=== PATIENT | female | born 1945 | race Two or more races ===

== ENCOUNTER 2018-05-01 20:34 | Inpatient (IN) | payer MEDICARE, BC ==
[~2018-05-01] VITALS: Ht 162.6 cm; Wt 59.9 kg
[2018-05-01 22:00] VITALS: BP 154/87
--- NOTE | 2018-05-01 22:00 | NUR ---
GPS-SUPERVISOR GROVE NOTES: ADMITTED A 72 YR-OLD FEMALE FROM [facility]. ADMITTED ON 5150 FOR DTS/DTO. PER HOLD, PATIENT HAD TAKEN AN UNKNOWN QUANTITY OF PILLS AND LOCKED HERSELF IN HER ROOM AFTER AN ATTEMPT TO KILL HERSELF. PATIENT STATED SHE DID NOT WANT TO LIVE ANYMORE AND WANTED TO BY GOING TO SLEEP AFTER TAKING PILLS. UPON FACE TO FACE ASSESSMENT, PT. IS ALERT, ORIENTED X3, DEPRESSED, COOPERATIVE WITH CARE, IN NO APPARENT DISTRESS NOTED. NO C/O OF PAIN OR DISCOMFORT. DENIES SI/HI OR HALLUCINATIONS AT THIS TIME. BELONGINGS WERE INVENTORIED AND CHECKED FOR CONTRABAND. PT. IS UNDER THE PSYCHIATRIC CARE OF DR. WELSH ORDERS OBTAINED, AND UNDER THE MEDICAL CARE OF KELLI, PAGED EPIC AND SPOKE TO JUDSON MCNAIR NOTIFIED OF ADMISSION, MED RECON DONE. SKIN ASSESSMENT DONE. SKIN INTACT. BED LOCKED AND PLACED ON LOWEST POSITION TO MAINTAIN SAFETY. FALL PRECAUTIONS IMPLEMENTED. WILL CONTINUE TO MONITOR Q15 MINS. FOR SAFETY AND BEHAVIOR.
[2018-05-01] MEDS ORDERED: MAG HYDROX/AL HYDROX/SIMETH 30 ML UDC PO PRN (22:30)
[2018-05-01] MEDS ORDERED: MAGNESIUM HYDROXIDE 30 ML UDC PO PRN (22:30)
[2018-05-01] MEDS ORDERED: ACETAMINOPHEN 325 MG TABLET PO PRN (22:30)
[2018-05-01 22:34] VITALS: BP 154/87
[2018-05-01] MEDS ORDERED: LISI-607 PO (23:28)
[2018-05-01] MEDS ORDERED: GABA600T12 PO (23:28)
[2018-05-01] MEDS ORDERED: OLAN10TA3 PO (23:28)
[2018-05-01] MEDS ORDERED: PRAV20TA4 PO (23:28)
[2018-05-01] MEDS ORDERED: DONE5TAB34 PO (23:28)
[2018-05-01] MEDS ORDERED: LEVO75TA7 PO (23:28)
[2018-05-01] MEDS ORDERED: NYST15PO4 TP (23:28)
[2018-05-01] MEDS ORDERED: ESZO3TAB27 PO (23:28)
[2018-05-02 07:39] LABS: BASOPHILS % (AUTO) 0.7 % (0.0-2.0); EOSINOPHILS % (AUTO) 1.4 % (0.0-6.0); HEMATOCRIT 39 % (33-45); HEMOGLOBIN 13.1 g/dL (11.5-14.8); LYMPHOCYTES # (AUTO) 1.9 /CMM (0.8-4.8); LYMPHOCYTES % (AUTO) 27.2 % (20.0-44.0); MEAN CORPUSCULAR HGB CONC 34 g/dl (31.0-36.0); MEAN CORPUSCULAR VOLUME 88 fL (82-100); MONOCYTES # (AUTO) 0.7 /CMM (0.1-1.30); MONOCYTES % (AUTO) 9.5 % (2.0-12.0); NEUTROPHILS # (AUTO) 4.3 /CMM (1.8-8.9); NEUTROPHILS % (AUTO) 61.2 % (43.0-81.0); PLATELET COUNT (AUTO) 169 /CMM (150-450); RED BLOOD CELL COUNT(AUTO) 4.44 MIL/uL (4.0-5.2)
[2018-05-02 07:53] LABS: ALANINE AMINOTRANSFERASE 14 U/L (12-78); ALBUMIN 3.4 g/dL (3.4-5.0); ALKALINE PHOSPHATASE 115 U/L (46-116); ASPARTATE AMINOTRANSFERASE 23 U/L (15-37); BILIRUBIN,TOTAL 0.7 mg/dL (0.2-1.0); CALCIUM, SERUM 8.7 mg/dL (8.5-10.1); CARBON DIOXIDE 25 mmol/L (21-32); CHLORIDE 106 mmol/L (98-107); CREATININE 1.3 mg/dL (0.6-1.3); GLUCOSE 105 mg/dL (74-106); MAGNESIUM 1.6 mg/dL (1.8-2.4); PHOSPHORUS 3.8 mg/dL (2.5-4.9); POTASSIUM 3.5 mmol/L (3.5-5.1); SODIUM SERUM 144 mmol/L (136-145); UREA NITROGEN, BLOOD 13 mg/dL (7-18)
[2018-05-02 07:55] LABS: CHOLESTEROL 158 mg/dL (<200); HDL CHOLESTEROL 85 mg/dL (40-60); LDL 69 mg/dL (0-99); TRIGLYCERIDES 71 mg/dL (30-150)
[2018-05-02 08:00] VITALS: BP 144/85
[2018-05-02 08:07] LABS: THYROID STIMULATING HORMONE 0.048 uIU/mL (0.358-3.74)
[2018-05-02] MEDS: LEVOTHYROXINE SODIUM 75 MCG TABLET PO SCH (08:29)
[2018-05-02] MEDS: DONEPEZIL 5 MG TABLET PO SCH (08:30)
[2018-05-02] MEDS: GABAPENTIN 300 MG CAPSULE PO SCH ×3 (08:30→16:24)
[2018-05-02] MEDS ORDERED: LISINOPRIL (5MG) 5 MG TABLET PO SCH (09:00)
[2018-05-02] MEDS ORDERED: PRAVASTATIN SODIUM 20 MG TABLET PO SCH (09:00)
[2018-05-02] MEDS: NYSTATIN TOP POWDER 15 GM BOTTLE TP SCH ×2 (09:31→16:24)
[2018-05-02] MEDS ORDERED: MAGNESIUM OXIDE 400 MG TABLET PO ONE (11:30)
[2018-05-02] MEDS ORDERED: LISINOPRIL (10MG) 10 MG TABLET PO ONE (14:00)
[2018-05-02] MEDS ORDERED: hydrALAZINE HCL 25 MG TABLET PO PRN (14:00)
--- NOTE | 2018-05-02 15:23 | NUR ---
SW contacted pts [phone] for collateral information and discharge planning. Per pt will return home once stable for discharge.
[2018-05-02 16:00] VITALS: BP 161/95
[2018-05-02 19:43] VITALS: BP 151/88
[2018-05-02] MEDS: ATORVASTATIN 10 MG TABLET PO SCH (21:21)
[2018-05-03] MEDS: LEVOTHYROXINE SODIUM 75 MCG TABLET PO SCH (07:04)
[2018-05-03 08:00] VITALS: BP 157/92
[2018-05-03] MEDS ORDERED: Z GUARD REMEDY 2 OZ OINT TP PRN (08:30)
[2018-05-03] MEDS: SERTRALINE HCL 50 MG TABLET PO SCH (09:37)
[2018-05-03] MEDS: GABAPENTIN 300 MG CAPSULE PO SCH ×3 (09:37→18:16)
[2018-05-03] MEDS: DONEPEZIL 5 MG TABLET PO SCH (09:38)
[2018-05-03] MEDS: LISINOPRIL (20MG) 20 MG TABLET PO SCH (09:38)
[2018-05-03] MEDS: NYSTATIN TOP POWDER 15 GM BOTTLE TP SCH ×2 (09:39→18:16)
--- NOTE | 2018-05-03 09:40 | NUR ---
NOLAN received a call from pts son Gato [phone] who stated he wants pt discharged to a SNF. NOLAN explained that she will speak to one designated family member and also informed him that pts wishes for her to return home. NOLAN also explained that if pt refuses to be placed at a SNF then the hospital cannot force pt to be discharged to a SNF. NOLAN explained that she would attempt to refer pt to 3 SNF in [facility].
--- NOTE | 2018-05-03 09:45 | NUR ---
SW contacted pts [phone] and informed him pts son Gato [phone] contacted her and requested pt to be discharged to a SNF. SW explained that she would only speak to one designated family member as if seemed there might be family tension regarding pts discharge plan. agreed and stated that he needed to speak with Psychiatrist Dr. Bermudez regarding pts treatment plan and discharge plan. SW will notify Dr. Bermudez that pts wants to speak with him on this present day.
--- NOTE | 2018-05-03 09:51 | NUR ---
INITIAL DISCHARGE PLAN: NOLAN spoke with pts Sarabjit [phone] who stated he wishes for pt to return home. Pt also wishes to return home to [address] [place] [address]. NOLAN received a call from pts son Gato [phone] who stated he wants pt discharged to a SNF. NOLAN explained that she will speak to one designated family member and also explained that if pt refuses to be placed at a SNF then the hospital cannot force pt to be discharged to a SNF. NOLAN explained that she would attempt to refer pt to 3 SNF in [facility]. NOLAN will help form a safe and proper discharge in collaboration with pt, pts , and MD.
--- NOTE | 2018-05-03 12:24 | NUR ---
MEDICATED WITH IMMODIUM FOR DIARRHEA.
[2018-05-03] MEDS: LOPERAMIDE HCL (2 MG CAP) 2 MG CAPSULE PO PRN ×2 (12:26→16:40)
--- NOTE | 2018-05-03 14:30 | NUR ---
NOLAN informed Psychiatrist DR. Bermudez that pts wants a call from him on this present day. Dr. Bermudez stated he would call .
--- NOTE | 2018-05-03 14:30 | NUR ---
FADI BOWLES CALLED REGARDING 3RD EPISODE TODAY OF DIARRHEA.REPORTED.ADDITIONALLY THAT PT. STATES SHE HAS HAD A PROBLEM WITH DIARRHEA FOR YEARS AND DID NOT EAT ANYTHING TODAY.ADDITIONALLY INFORMED HIM PT. WITH NAUSEA,ALSO TOLD HIM MG LEVEL 1.6 YESTERDAY AND NOT REPLACED.VS TAKEN-SEE GRAPHIC.
[2018-05-03 14:35] VITALS: BP 108/58
[2018-05-03 16:00] VITALS: BP 116/70
--- NOTE | 2018-05-03 16:42 | NUR ---
MEDICATED AGAIN FOR DIARRHEA WITH IMMODIUM.
--- NOTE | 2018-05-03 17:30 | NUR ---
LAURI HUANG CALLED AGAIN AND AWARE PT. VOMITED X1 AND HAD 3 DIARRHEA STOOLS WELL LOW LABS YESTERDAY,LABS ORDERED FOR TOMORROW.NO MEDS ORDERED.
--- NOTE | 2018-05-03 18:39 | NUR ---
NOTED REDNESS IN PERINEUM,INNER THIGHS AND BUTTOCKS FOLD. PHOTOS TAKEN.
[2018-05-03 20:13] VITALS: BP 116/80
[2018-05-03] MEDS: ATORVASTATIN 10 MG TABLET PO SCH (21:36)
[2018-05-04] MEDS: LEVOTHYROXINE SODIUM 75 MCG TABLET PO SCH (06:53)
[2018-05-04 07:39] LABS: CALCIUM, SERUM 8.7 mg/dL (8.5-10.1); CARBON DIOXIDE 21 mmol/L (21-32); CHLORIDE 103 mmol/L (98-107); CREATININE 2.1 mg/dL (0.6-1.3); GLUCOSE 124 mg/dL (74-106); MAGNESIUM 2.2 mg/dL (1.8-2.4); POTASSIUM 4.1 mmol/L (3.5-5.1); SODIUM SERUM 139 mmol/L (136-145); UREA NITROGEN, BLOOD 36 mg/dL (7-18)
[2018-05-04 08:00] VITALS: BP 108/67
[2018-05-04] MEDS: DONEPEZIL 5 MG TABLET PO SCH (08:42)
[2018-05-04] MEDS: LISINOPRIL (20MG) 20 MG TABLET PO SCH (08:43)
[2018-05-04] MEDS: SERTRALINE HCL 50 MG TABLET PO SCH (08:43)
[2018-05-04] MEDS: GABAPENTIN 300 MG CAPSULE PO SCH ×3 (08:43→16:34)
[2018-05-04] MEDS: NYSTATIN TOP POWDER 15 GM BOTTLE TP SCH (08:50)
[2018-05-04] MEDS: METHIMAZOLE (5MG) 5 MG TABLET PO SCH (10:29)
--- NOTE | 2018-05-04 12:26 | NUR ---
WOUND CARE CONSULT: PT PRESENTS WITH RASH TO PERINEUM, PRESENT ON ADMISSION. PT IS ACTUALLY CONTINENT AT THIS TIME AND ABLE TO ASSIST WITH TURNING AND REPOSITIONING IN BED. RECOMMENDATIONS MADE FOR SKIN PROTECTION. DISCUSSED WITH NURSING STAFF. WILL SEE PRN. BANGURA IN AGREEMENT WITH PLAN OF CARE. Addendum: 05/04/18 at 1228 by PAU GUPTA WNDNU Amended: Links added.
[2018-05-04 16:00] VITALS: BP 101/69
--- NOTE | 2018-05-04 16:30 | NUR ---
NURSING NOTE: PT IN THE HALLWAY TRYING TO WALK TO HER ROOM FROM THE DINNING ROOM, LOST HER BALANCE AND ALMOST FELL BUT WAS HELPED BY NURSING STAFF AND DID NOT HAVE A FALL. PT STATES "I LOST MY BALANCE, I FEEL DIZZY AND NAUSEOUS". VS:138/65, 105, 95%RA, 16, 0/10 PAIN. PT WAS ASSESSED AND SEEMS TO BE A LITTLE PALE. WAS TAKEN TO HER ROOM TO LAY DOWN AND WAS OFFERED FLUIDS. WILL CONTINUE TO MONITOR.
[2018-05-04] MEDS: CLOTRIMAZOLE 1% 15 GM TUBE TP SCH (16:34)
--- NOTE | 2018-05-04 18:08 | NUR ---
RN-CO: Notified regarding patient's change of room 322 A as overflow.
--- NOTE | 2018-05-04 19:10 | NUR ---
RN MS OPENING/ADMITTING NOTES RECEIVED PATIENT FROM GPS OVERFLOW. PATIENT IS ALERT AND ORIENTED X3, VERBALLY RESPONSIVE, ABLE TO MAKE NEEDS KNOWN. FAMILY AT BEDSIDE. BREATHING EVEN AND UNLABORED. NO SOB NOTED. TOLERATING ROOM AIR. NO COMPLAINTS OF PAIN OR DISCOMFORT. NO FACIAL GRIMACING. NO IV PLACED. SKIN DRY AND WARM TO TOUCH. AFEBRILE. ENCOURAGED TO DRINK MORE WATER. KEPT COMFORTABLE IN BED. SITTER AT BEDSIDE. ALL OTHER NEEDS ATTENDED TO. SAFETY MEASURES IN PLACE. CALL LIGHT WITHIN REACH. WILL CONTINUE TO MONITOR.
--- NOTE | 2018-05-04 19:15 | NUR ---
NURSING NOTE: PT WAS TRANSFERRED TO MED SURG ROOM 322A. REPORT WAS GIVEN TO RN. CHART, PTS MEDS FROM THE [facility] AND 5250 HOLD WERE ALSO GIVEN TO RN.
[2018-05-04 20:00] VITALS: BP 97/54
[2018-05-04] MEDS: ATORVASTATIN 10 MG TABLET PO SCH (21:22)
[2018-05-05 06:29] LABS: BASOPHILS % (AUTO) 0.4 % (0.0-2.0); EOSINOPHILS % (AUTO) 0.4 % (0.0-6.0); HEMATOCRIT 37 % (33-45); HEMOGLOBIN 12.3 g/dL (11.5-14.8); LYMPHOCYTES # (AUTO) 1.8 /CMM (0.8-4.8); LYMPHOCYTES % (AUTO) 16.8 % (20.0-44.0); MEAN CORPUSCULAR HGB CONC 34 g/dl (31.0-36.0); MEAN CORPUSCULAR VOLUME 87 fL (82-100); MONOCYTES # (AUTO) 1.2 /CMM (0.1-1.30); MONOCYTES % (AUTO) 11.5 % (2.0-12.0); NEUTROPHILS # (AUTO) 7.6 /CMM (1.8-8.9); NEUTROPHILS % (AUTO) 70.9 % (43.0-81.0); PLATELET COUNT (AUTO) 161 /CMM (150-450); RED BLOOD CELL COUNT(AUTO) 4.23 MIL/uL (4.0-5.2); WHITE BLOOD COUNT (AUTO) 10.7 K/uL (4.3-11.0)
--- NOTE | 2018-05-05 06:34 | NUR ---
RN MS CLOSING NOTES PATIENT RESTING IN BED. NO ACUTE CHANGES THROUGHOUT SHIFT. BREATHING EVEN AND UNLABORED. NO SOB NOTED. TOLERATING ROOM AIR. NO COMPLAINTS OF PAIN OR DISCOMFORT. NO FACIAL GRIMACING. NO IV PLACED PER MD. SKIN DRY AND WARM TO TOUCH. AFEBRILE. ENCOURAGED TO DRINK WATER. KEPT COMFORTABLE IN BED. SITTER AT BEDSIDE. ALL OTHER NEEDS ATTENDED TO. SAFETY MEASURES IN PLACE. CALL LIGHT WITHIN REACH. WILL ENDORSE TO ONCOMING NURSE FOR JESSICA.
[2018-05-05 06:43] LABS: CREATINE KINASE, TOTAL 444 U/L (26-192)
[2018-05-05 06:47] LABS: ALANINE AMINOTRANSFERASE 22 U/L (12-78); ALBUMIN 2.9 g/dL (3.4-5.0); ALKALINE PHOSPHATASE 97 U/L (46-116); ASPARTATE AMINOTRANSFERASE 27 U/L (15-37); BILIRUBIN,TOTAL 0.6 mg/dL (0.2-1.0); CALCIUM, SERUM 8.3 mg/dL (8.5-10.1); CARBON DIOXIDE 21 mmol/L (21-32); CHLORIDE 97 mmol/L (98-107); CREATININE 3.4 mg/dL (0.6-1.3); GLUCOSE 107 mg/dL (74-106); MAGNESIUM 2.1 mg/dL (1.8-2.4); PHOSPHORUS 5.2 mg/dL (2.5-4.9); POTASSIUM 3.6 mmol/L (3.5-5.1); SODIUM SERUM 132 mmol/L (136-145); TOTAL PROTEIN, SERUM 6.9 g/dL (6.4-8.2); UREA NITROGEN, BLOOD 60 mg/dL (7-18)
--- NOTE | 2018-05-05 07:23 | NUR ---
RN OPENING NOTE PT WAS RECEIVED IN BED AT LOWEST AND LOCKED POSITION WITH SIDE RAILS UP X2, A/O X3 RESTING COMFORTABLY IN BED, SITTER PRESENT AT THE BEDSIDE, NO S/S OF PAIN OR DISTRESS NOTED AT THIS TIME, BREATHING EVEN AND UNLABORED ON RA, NO IV IN PLACE DUE TO BEING GPS OVERFLOW, SAFETY PRECAUTIONS IN PLACE, CALL LIGHT WITHIN REACH, WILL MONITOR ACCORDINGLY.
[2018-05-05] MEDS: LEVOTHYROXINE SODIUM 75 MCG TABLET PO SCH (07:36)
[2018-05-05 08:00] VITALS: BP 83/58
[2018-05-05] MEDS: SERTRALINE HCL 50 MG TABLET PO SCH (09:02)
[2018-05-05] MEDS: DONEPEZIL 5 MG TABLET PO SCH (09:02)
[2018-05-05] MEDS: GABAPENTIN 300 MG CAPSULE PO SCH ×3 (09:02→16:13)
[2018-05-05] MEDS: CLOTRIMAZOLE 1% 15 GM TUBE TP SCH ×2 (09:03→16:14)
[2018-05-05] MEDS: METHIMAZOLE (5MG) 5 MG TABLET PO SCH (09:03)
[2018-05-05] MEDS: IV NS 0.9% 1,000 ML IV SCH ×2 (10:55→18:04)
--- NOTE | 2018-05-05 13:30 | NUR ---
SW received a call from pts son Gato [phone] who stated pt will be returning home after a conversation he had with pts and psychiatrist Dr. Bermudez. Son understands that placing pt in a SNF will be difficult given that pt attempted suicide and also understands that if pt does not want to go the hospital cannot force her. Son also expressed concern with pts length of stay and stated he did not want pt hospitalized for a long time. SW explained that pt will be discharged once psychiatrist feels she's stable. Son understood.
--- NOTE | 2018-05-05 14:18 | NUR ---
NOLAN contacted pts son Gato [phone] and left a voicemail informing him psychiatrist has ordered D/C for Wednesday05/09/18.
[2018-05-05 15:25] LABS: APPEARANCE,URINE SL CLOUDY (CLEAR); BILIRUBIN,URINE NEGATIVE (NEGATIVE); BLOOD, URINE TRACE-INTA Ery/uL (NEGATIVE); COLOR,URINE YELLOW (YELLOW); KETONES,URINE NEGATIVE (NEGATIVE); LEUKOCYTE ESTERASE ,URINE 2+ (NEGATIVE); NITRITE, URINE NEGATIVE (NEGATIVE); PH,URINE 5.5 (5.0-8.0); PROTEIN,URINE TRACE mg/dl (NEGATIVE); UGLUCOSE NEGATIVE (NEGATIVE); UROBILINOGEN,URINE 0.2 EU/dL (0.2)
[2018-05-05 15:36] LABS: CREATININE, URINE 227.8 MG/DL (30.0-125.0)
[2018-05-05 15:45] LABS: BACTERIA,URINE Few /HPF (None Seen); RBC,URINE 0-2 /HPF (0-2); SQUAMOUS EPITHELIAL CELL,UR Few /HPF (None Seen); WBC,URINE 21-50 /HPF (0-3)
[2018-05-05 15:54] LABS: EOSINOPHIL,URINE None Seen
[2018-05-05 16:48] VITALS: BP 105/63
--- NOTE | 2018-05-05 18:10 | NUR ---
RN CLOSING NOTE PT N BED AT LOWEST AND LOCKED POSITION WITH SIDE RAILS UP X2, A/O X3 RESTING COMFORTABLY IN BED, SITTER PRESENT AT THE BEDSIDE WITH SON PRESENT WELL, NO COMPLAINTS OF ANY PAIN OR DISTRESS, BREATHING EVEN AND UNLABORED, LFA IV #[address] DUE TO RECEIVING FLUID, SAFETY PRECAUTIONS IN PLACE, CALL LIGHT WITHIN REACH, WILL ENDORSE TO NIGHT FOR JESSICA.
[2018-05-05 20:00] VITALS: BP 95/61
[2018-05-05] MEDS: ATORVASTATIN 10 MG TABLET PO SCH (22:14)
[2018-05-06] MEDS: IV NS 0.9% 1,000 ML IV SCH ×3 (02:59→16:12)
--- NOTE | 2018-05-06 07:09 | NUR ---
RN CLOSING NOTES PATIENT IS RESTING IN BED. NO SIGNS OF RESPIRATORY DISTRESS OR SHORTNESS OF BREATH. NO SIGNS OF FACIAL GRIMACING. IV SITE: R WRIST G20 PATENT AND INTACT. SAFETY PRECAUTIONS IMPLEMENTED: CALL LIGHT WITHIN REACH, SIDERAILS UP, BED LOCKED. WILL ENDORSE TO AM SHIFT.
[2018-05-06 07:14] LABS: BASOPHILS % (AUTO) 0.4 % (0.0-2.0); EOSINOPHILS % (AUTO) 0.4 % (0.0-6.0); HEMATOCRIT 33 % (33-45); HEMOGLOBIN 11.2 g/dL (11.5-14.8); LYMPHOCYTES # (AUTO) 0.9 /CMM (0.8-4.8); LYMPHOCYTES % (AUTO) 11.4 % (20.0-44.0); MEAN CORPUSCULAR HGB CONC 34 g/dl (31.0-36.0); MEAN CORPUSCULAR VOLUME 87 fL (82-100); MONOCYTES % (AUTO) 11.8 % (2.0-12.0); NEUTROPHILS # (AUTO) 6.3 /CMM (1.8-8.9); PLATELET COUNT (AUTO) 140 /CMM (150-450); RED BLOOD CELL COUNT(AUTO) 3.81 MIL/uL (4.0-5.2); WHITE BLOOD COUNT (AUTO) 8.3 K/uL (4.3-11.0)
--- NOTE | 2018-05-06 07:17 | NUR ---
RN OPENING NOTE PT WAS RECEIVED IN BED AT LOWEST AND LOCKED POSITION WITH SIDE RAILS UP X2, A/O X3 RESTING COMFORTABLY IN BED, SITTER PRESENT AT THE BEDSIDE, NO S/S OF PAIN OR DISTRESS NOTED AT THIS TIME, BREATHING EVEN AND UNLABORED ON RA, IV #[address] WITH IVF RUNNING, CALL LIGHT WITHIN REACH, WILL MONITOR ACCORDINGLY.
[2018-05-06] MEDS: LEVOTHYROXINE SODIUM 75 MCG TABLET PO SCH (07:21)
[2018-05-06 07:22] LABS: ALANINE AMINOTRANSFERASE 30 U/L (12-78); ALBUMIN 2.5 g/dL (3.4-5.0); ALKALINE PHOSPHATASE 93 U/L (46-116); ASPARTATE AMINOTRANSFERASE 40 U/L (15-37); BILIRUBIN,TOTAL 0.3 mg/dL (0.2-1.0); CARBON DIOXIDE 22 mmol/L (21-32); CHLORIDE 103 mmol/L (98-107); CREATINE KINASE, TOTAL 347 U/L (26-192); CREATININE 2.4 mg/dL (0.6-1.3); GLUCOSE 110 mg/dL (74-106); MAGNESIUM 2.1 mg/dL (1.8-2.4); PHOSPHORUS 4.2 mg/dL (2.5-4.9); POTASSIUM 3.8 mmol/L (3.5-5.1); SODIUM SERUM 136 mmol/L (136-145); TOTAL PROTEIN, SERUM 6.3 g/dL (6.4-8.2); UREA NITROGEN, BLOOD 60 mg/dL (7-18)
[2018-05-06 08:07] LABS: *SPE A/G RATIO 0.9 (0.7-1.7); *SPE ALPHA-1-GLOBULIN 0.5 g/dL (0.0-0.4); *SPE ALPHA-2-GLOBULIN 1.2 g/dL (0.4-1.0); *SPE GLOBULIN, TOTAL 3.4 g/dL (2.2-3.9); *SPE M-SPIKE 0.4 g/dL (Not Observed); *SPEGAMMA GLOBULIN 0.7 g/dL (0.4-1.8)
[2018-05-06] MEDS: METHIMAZOLE (5MG) 5 MG TABLET PO SCH (08:07)
[2018-05-06] MEDS: DONEPEZIL 5 MG TABLET PO SCH (08:07)
[2018-05-06] MEDS: GABAPENTIN 300 MG CAPSULE PO SCH ×3 (08:07→16:00)
[2018-05-06] MEDS: CLOTRIMAZOLE 1% 15 GM TUBE TP SCH ×2 (08:07→16:00)
[2018-05-06] MEDS: SERTRALINE HCL 50 MG TABLET PO SCH (08:07)
--- NOTE | 2018-05-06 09:08 | NUR ---
NOLAN contacted pts Sarabjit [phone] and informed him pt will be discharging on Wednesday05/09/18, agreed and stated he would be picking pt up at 10:00am.
[2018-05-06] MEDS: CEPHALEXIN MONOHYDRATE 500 MG CAPSULE PO SCH ×2 (09:09→21:47)
--- NOTE | 2018-05-06 17:01 | NUR ---
TRANSFER NOTE IV WAS REMOVED AND PT WAS TRANSFERRED DOWN TO GPS AT THIS TIME WITH ALL HER BELONGINGS AND CHART. BEDSIDE REPORT WAS GIVEN TO PAU AT GPS.
[2018-05-06 20:00] VITALS: BP 95/55
[2018-05-06] MEDS: ATORVASTATIN 10 MG TABLET PO SCH (21:47)
[2018-05-07] MEDS: LEVOTHYROXINE SODIUM 75 MCG TABLET PO SCH (06:28)
[2018-05-07] MEDS: LOPERAMIDE HCL (2 MG CAP) 2 MG CAPSULE PO PRN ×2 (07:04→18:07)
--- NOTE | 2018-05-07 07:04 | NUR ---
HAD LOOSE BOWEL MOVEMENT X1 AT THIS TIME 0704, BROWN IN COLOR, SMALL TO MOD. AMOUNT. LOPERAMIDE 2 MG CAP PO GIVEN.
[2018-05-07 08:00] VITALS: BP 137/66
[2018-05-07 08:00] LABS: CALCIUM, SERUM 8.5 mg/dL (8.5-10.1); CARBON DIOXIDE 17 mmol/L (21-32); CHLORIDE 106 mmol/L (98-107); CREATININE 1.8 mg/dL (0.6-1.3); GLUCOSE 110 mg/dL (74-106); POTASSIUM 4.3 mmol/L (3.5-5.1); SODIUM SERUM 138 mmol/L (136-145); UREA NITROGEN, BLOOD 46 mg/dL (7-18)
[2018-05-07] MEDS: DONEPEZIL 5 MG TABLET PO SCH (09:11)
[2018-05-07] MEDS: SERTRALINE HCL 50 MG TABLET PO SCH (09:11)
[2018-05-07] MEDS: CEPHALEXIN MONOHYDRATE 500 MG CAPSULE PO SCH (09:11)
[2018-05-07] MEDS: GABAPENTIN 300 MG CAPSULE PO SCH ×3 (09:15→17:31)
[2018-05-07] MEDS: METHIMAZOLE (5MG) 5 MG TABLET PO SCH (09:15)
[2018-05-07] MEDS: CLOTRIMAZOLE 1% 15 GM TUBE TP SCH ×2 (09:15→17:37)
[2018-05-07 10:07] LABS: BASOPHILS % (AUTO) 0.6 % (0.0-2.0); EOSINOPHILS % (AUTO) 0.7 % (0.0-6.0); HEMATOCRIT 34 % (33-45); HEMOGLOBIN 11.4 g/dL (11.5-14.8); LYMPHOCYTES % (AUTO) 13.1 % (20.0-44.0); MEAN CORPUSCULAR HGB CONC 34 g/dl (31.0-36.0); MEAN CORPUSCULAR VOLUME 87 fL (82-100); MONOCYTES # (AUTO) 0.8 /CMM (0.1-1.30); MONOCYTES % (AUTO) 10.9 % (2.0-12.0); NEUTROPHILS # (AUTO) 5.8 /CMM (1.8-8.9); NEUTROPHILS % (AUTO) 74.7 % (43.0-81.0); PLATELET COUNT (AUTO) 150 /CMM (150-450); RED BLOOD CELL COUNT(AUTO) 3.89 MIL/uL (4.0-5.2); WHITE BLOOD COUNT (AUTO) 7.8 K/uL (4.3-11.0)
[2018-05-07] MEDS ORDERED: IV NS 0.9% 1,000 ML IV PRN ×2 (12:30→12:45)
--- NOTE | 2018-05-07 12:51 | NUR ---
GPS RN NOTE: DIRECTOR OPERATING ZAKIYA BLAKELY NOTIFIED TO CLARIFY IV CONTINUES FLUIDS ORDER , PER DIRECTOR OPERATING DMIRTY START BOLUS IV 0.9 % NS ONE TIME ONLY AT THIS TIME ,ORDER PLACED AND CARED OUT.
[2018-05-07] MEDS ORDERED: AMOX/CLAVULANATE 500 MG TABLET PO SCH (13:30)
[2018-05-07 16:00] VITALS: BP 125/92
--- NOTE | 2018-05-07 18:16 | NUR ---
GPS RN NOTE: PT HAD LOOSE BOWEL MOVEMENT X1 LOPERAMIDE 2 MG CAP PO GIVEN.
[2018-05-07 20:00] VITALS: BP 129/76
[2018-05-07] MEDS: AMOX/CLAVULANATE 250 MG TABLET PO SCH (20:53)
[2018-05-07] MEDS ORDERED: NITROFURANTOIN/NITROFURAN MAC 100 MG CAPSULE PO SCH (21:00)
[2018-05-07] MEDS: ATORVASTATIN 10 MG TABLET PO SCH (21:20)
[2018-05-08 07:36] LABS: BASOPHILS # (AUTO) 0.1 /CMM (0.0-0.2); BASOPHILS % (AUTO) 0.8 % (0.0-2.0); EOSINOPHILS % (AUTO) 0.8 % (0.0-6.0); HEMATOCRIT 35 % (33-45); HEMOGLOBIN 11.7 g/dL (11.5-14.8); LYMPHOCYTES # (AUTO) 1.3 /CMM (0.8-4.8); LYMPHOCYTES % (AUTO) 15.6 % (20.0-44.0); MEAN CORPUSCULAR HGB CONC 33 g/dl (31.0-36.0); MEAN CORPUSCULAR VOLUME 88 fL (82-100); MONOCYTES # (AUTO) 0.9 /CMM (0.1-1.30); MONOCYTES % (AUTO) 10.9 % (2.0-12.0); NEUTROPHILS % (AUTO) 71.9 % (43.0-81.0); PLATELET COUNT (AUTO) 185 /CMM (150-450); RED BLOOD CELL COUNT(AUTO) 3.98 MIL/uL (4.0-5.2); WHITE BLOOD COUNT (AUTO) 8.3 K/uL (4.3-11.0)
[2018-05-08 07:50] LABS: CALCIUM, SERUM 8.4 mg/dL (8.5-10.1); CARBON DIOXIDE 21 mmol/L (21-32); CHLORIDE 106 mmol/L (98-107); CREATININE 1.4 mg/dL (0.6-1.3); GLUCOSE 110 mg/dL (74-106); SODIUM SERUM 138 mmol/L (136-145); UREA NITROGEN, BLOOD 31 mg/dL (7-18)
[2018-05-08 08:00] VITALS: BP 129/68
[2018-05-08] MEDS: LEVOTHYROXINE SODIUM 75 MCG TABLET PO SCH (08:31)
[2018-05-08] MEDS: AMOX/CLAVULANATE 250 MG TABLET PO SCH ×2 (08:44→21:47)
[2018-05-08] MEDS: DONEPEZIL 5 MG TABLET PO SCH (08:45)
[2018-05-08] MEDS: GABAPENTIN 300 MG CAPSULE PO SCH ×3 (08:45→16:13)
[2018-05-08] MEDS: SERTRALINE HCL 50 MG TABLET PO SCH (08:45)
[2018-05-08] MEDS: METHIMAZOLE (5MG) 5 MG TABLET PO SCH (08:46)
[2018-05-08] MEDS: CLOTRIMAZOLE 1% 15 GM TUBE TP SCH ×2 (08:49→16:13)
[2018-05-08 10:38] VITALS: BP 128/84
[2018-05-08 16:00] VITALS: BP 160/71
[2018-05-08 20:23] VITALS: BP 143/83
[2018-05-08] MEDS: ATORVASTATIN 10 MG TABLET PO SCH (21:47)
[2018-05-09 06:58] LABS: BASOPHILS % (AUTO) 0.5 % (0.0-2.0); HEMATOCRIT 35 % (33-45); HEMOGLOBIN 11.5 g/dL (11.5-14.8); LYMPHOCYTES % (AUTO) 11.7 % (20.0-44.0); MEAN CORPUSCULAR HGB CONC 33 g/dl (31.0-36.0); MEAN CORPUSCULAR VOLUME 87 fL (82-100); MONOCYTES % (AUTO) 11.8 % (2.0-12.0); NEUTROPHILS # (AUTO) 6.6 /CMM (1.8-8.9); PLATELET COUNT (AUTO) 215 /CMM (150-450); RED BLOOD CELL COUNT(AUTO) 3.95 MIL/uL (4.0-5.2); WHITE BLOOD COUNT (AUTO) 8.8 K/uL (4.3-11.0)
[2018-05-09 07:13] LABS: CALCIUM, SERUM 8.3 mg/dL (8.5-10.1); CARBON DIOXIDE 25 mmol/L (21-32); CHLORIDE 104 mmol/L (98-107); CREATININE 1.3 mg/dL (0.6-1.3); GLUCOSE 115 mg/dL (74-106); SODIUM SERUM 138 mmol/L (136-145); UREA NITROGEN, BLOOD 22 mg/dL (7-18)
[2018-05-09 08:00] VITALS: BP_SYST 123; BP_SYST 130; BP_DIAS 75; BP_DIAS 79
[2018-05-09] MEDS: LEVOTHYROXINE SODIUM 75 MCG TABLET PO SCH (08:18)
[2018-05-09] MEDS: SERTRALINE HCL 50 MG TABLET PO SCH (08:30)
[2018-05-09] MEDS: AMOX/CLAVULANATE 250 MG TABLET PO SCH (08:31)
[2018-05-09] MEDS: METHIMAZOLE (5MG) 5 MG TABLET PO SCH (08:31)
[2018-05-09] MEDS: DONEPEZIL 5 MG TABLET PO SCH (08:31)
[2018-05-09] MEDS: CLOTRIMAZOLE 1% 15 GM TUBE TP SCH (08:32)
--- NOTE | 2018-05-09 10:30 | NUR ---
GPS RN NOTE: FOLLOWED UP TO THE WARDROBE COORDINATOR RAB THE ORDER OF DOPPLER ULTRASOUND ON THE LEFT LEG OF THE PATIENT, PER TECH "THEY WILL DO IT SOON POSSIBLE". NOTIFIED THAT WE CAN NOT DISCHARGE THE PATIENT UNTIL WE CLEAR OUT THE RESULT OF THE LEFT LEG ULTRASOUND. VERBALIZED DISAPPOINTMENT.
[2018-05-09] MEDS: GABAPENTIN 300 MG CAPSULE PO SCH ×2 (11:20→13:03)
--- NOTE | 2018-05-09 12:30 | NUR ---
GPS RN NOTE: ULTRASOUND RESULT SEEN BY JUDSON ZAPIEN AND SPOKE TO THE FAMILY.
--- NOTE | 2018-05-09 13:00 | NUR ---
DISCHARGE PATIENT TO HOME, DENIES SI/HI/AH/VH, NO SOB, NO ACUTE DISTRESS, BREATHING EVEN AND UNLABORED, NO S/S OF PAIN AND DISCOMFORT, DISCHARGED PAPER EXPLAINED TO THE AND FAMILY AND SIGNED BY THE PATIENT. BELONGINGS TOOK BY THE . PATIENT ASSISTED DOWN VIA WHEELCHAIR WITH 1 STAFF AND . DISCHARGED
--- NOTE | 2018-05-09 13:42 | NUR ---
DISCHARGE NOTE: Pt was discharged at 12:00pm via private vehicle home [address] [place] [address]. Pts Sarabjit [phone] picked pt up and transported home. Pts mood was euthymic with congruent affect. Pt denied visual/auditory hallucinations and denied suicidal/homicidal ideation. SW provided pt with a referral to [facility] for psychiatric treatment and to address her misuse of prescription medication Address: [address], [place] [address] where she will present at 9:00am on Thursday May 10, 2018 for an intake. Pt will also follow up with Cq Developer: Dr. Rossana Churchill [address] [place] [phone]. The multidisciplinary exitcare form was done, printed, signed, and given to the patient.
[2018-05-09 15:11] LABS: *SPE A/G RATIO 0.8 (0.7-1.7); *SPE ALBUMIN 2.5 g/dL (2.9-4.4); *SPE ALPHA-1-GLOBULIN 0.5 g/dL (0.0-0.4); *SPE ALPHA-2-GLOBULIN 1.2 g/dL (0.4-1.0); *SPE BETA GLOBULIN 0.9 g/dL (0.7-1.3); *SPE GLOBULIN, TOTAL 3.2 g/dL (2.2-3.9); *SPE M-SPIKE 0.4 g/dL (Not Observed); *SPEGAMMA GLOBULIN 0.6 g/dL (0.4-1.8)
--- NOTE | 2018-05-24 15:35 | NUR ---
15 DAY SUBSTANCE ABUSE FOLLOW UP: unable to follow up due to 3 unsuccessful attempts.
== END 2018-05-09 13:00 | disposition home or self-care (01) | DRG 885 ==
LOC: GPS 21:23 → GPSOV 05-04 19:19 → GPS 05-06 17:07
PROVIDERS: ADMIT Psychiatry & Neurology Psychiatry; ATTEND Psychiatry & Neurology Psychiatry
DX: F33.2 Major depressive disorder, recurrent severe without psychotic features (principal); N17.0 Acute kidney failure with tubular necrosis; B95.2 Enterococcus as the cause of diseases classified elsewhere; N39.0 Urinary tract infection, site not specified; R45.851 Suicidal ideations; B49 Unspecified mycosis; E87.1 Hypo-osmolality and hyponatremia; I82.402 Acute embolism and thrombosis of unspecified deep veins of left lower extremity; F41.9 Anxiety disorder, unspecified; E78.5 Hyperlipidemia, unspecified; I10 Essential (primary) hypertension; N13.9 Obstructive and reflux uropathy, unspecified; K52.9 Noninfective gastroenteritis and colitis, unspecified; G89.29 Other chronic pain; G58.8 Other specified mononeuropathies; E05.90 Thyrotoxicosis, unspecified without thyrotoxic crisis or storm; G47.00 Insomnia, unspecified; F03.90 Unspecified dementia, unspecified severity, without behavioral disturbance, psychotic disturbance, mood disturbance, and anxiety; Z86.718 Personal history of other venous thrombosis and embolism
CPT/HCPCS: 36415; 76770-TC; 80048-TC; 80053-TC; 80061-TC; 81000-TC; 82550-TC; 82570-TC; 83735-TC; 83970; 84100-TC; 84155; 84155-TC; 84165; 84300-TC; 84439-TC; 84443-TC; 85025-TC; 87081-TC; 87086-TC; 87186-TC; 93971-TC; J7030